=== PATIENT | female | born 1985 | race Caucasian/White ===

== ENCOUNTER 2018-07-01 05:24 | Inpatient (IN) | payer MEDICAID | END 2018-07-14 02:14 | disposition short-term general hospital (02) | LOC: ER 05:24 → TELE-CENTR 07-02 20:01 → TELE 12:05 → TELE-CENTR 12:55 | PROC: 0B9K3ZX Drainage of Right Lung, Percutaneous Approach, Diagnostic (ICD-10-PCS; principal; 2018-07-12 13:04) | DX: T85.628A Displacement of other specified internal prosthetic devices, implants and grafts, initial encounter (principal); E11.65 Type 2 diabetes mellitus with hyperglycemia; J93.83 Other pneumothorax; E87.6 Hypokalemia; F41.9 Anxiety disorder, unspecified; F32.9 Major depressive disorder, single episode, unspecified; J30.2 Other seasonal allergic rhinitis; F12.90 Cannabis use, unspecified, uncomplicated ==

== ENCOUNTER 2021-01-02 09:08 | Emergency (ER) | payer MEDICAID ==
[~2021-01-02] VITALS: Ht 160 cm; Wt 59.0 kg
[~2021-01-02 09:08] MED LIST: SERT25TA84 PO
[2021-01-02 10:16] LABS: Basophils # (auto) 0.1 10 ^3/uL (0-0.2); Eosinophils # (auto) 0.1 10 ^3/uL (0-0.8); Eosinophils % (auto) 1.9 % (0.0-7.0); Hematocrit 42.6 % (36.0-46.0); Hemoglobin 14.5 g/dL (12.2-16.2); Lymphocytes # (auto) 1.6 10 ^3/uL (0.4-5.4); Lymphocytes % (auto) 24.9 % (10.0-50.0); Mean Corpuscular Hemoglobin 29.5 pg (28.0-32.0); Mean Corpuscular Volume 86.9 fL (80.0-100.0); Monocytes # (auto) 0.4 10 ^3/uL (0-1.3); Monocytes % (auto) 5.9 % (0.0-12.0); Neutrophils # (auto) 4.1 10 ^3/uL (1.6-8.6); Neutrophils % (auto) 66.3 % (37.0-80.0); Red Cell Distribution Width 13.1 % (11.8-14.3); White Blood Cell 6.2 10^3/uL (4.4-10.8)
[2021-01-02 10:21] LABS: Albumin 4.2 g/dL (3.4-5.0); Calcium 9.1 mg/dL (8.5-10.1); Potassium 3.4 mmol/L (3.5-5.1)
[2021-01-02 10:25] LABS: Bilirubin, Total 0.9 mg/dL (0.2-1.0); Total Protein 7.6 g/dL (6.4-8.2)
[2021-01-02 10:46] LABS: Urine WBC None Seen /hpf (0 - 5)
[2021-01-02 11:05] LABS: Urine Bacteria NONE SEEN /hpf (None Seen); Urine Blood Negative /uL (Negative)
[2021-01-02 12:52] VITALS: BP 120/82
== END 2021-01-02 12:53 | disposition home or self-care (01) ==
LOC: ER 09:08
DX: R07.89 Other chest pain (principal); F41.9 Anxiety disorder, unspecified; Z79.899 Other long term (current) drug therapy
CPT/HCPCS: 36415; 71046; 80053; 81001; 84484; 85025; 93005

== ENCOUNTER 2023-12-31 22:12 | Emergency (ER) | payer MEDICAID ==
[~2023-12-31] VITALS: Ht 160 cm; Wt 72.2 kg
[2023-12-31] MEDS: LIDOCAINE 1% HCL (LOCAL ANESTH.) INJ 20ML MDV ID ONE (22:34)
[2023-12-31] MEDS: TETANUS-DIPTH-ACEL PERTUSSIS 0.5ML SYR Tdap IM ONE (23:08)
[2023-12-31 23:20] VITALS: BP 121/81; PULSE 89; RESP 18; TEMP 99.2; O2SAT 97
== END 2023-12-31 23:21 | disposition home or self-care (01) ==
LOC: ER 22:12
DX: S01.111A Laceration without foreign body of right eyelid and periocular area, initial encounter (principal); F41.9 Anxiety disorder, unspecified; F32.A Depression, unspecified; F15.90 Other stimulant use, unspecified, uncomplicated; Z79.899 Other long term (current) drug therapy; W22.8XXA Striking against or struck by other objects, initial encounter; Y93.89 Activity, other specified; Y92.89 Other specified places as the place of occurrence of the external cause; Y99.8 Other external cause status
CPT/HCPCS: 12013; 90471; 90715

== ENCOUNTER 2024-03-03 10:55 | Emergency (ER) | payer MEDICAID ==
[~2024-03-03] VITALS: Ht 160 cm; Wt 68.0 kg
[2024-03-03 11:05] VITALS: BP 139/96; PULSE 105; RESP 18; O2SAT 97
== END 2024-03-03 13:31 | disposition left against medical advice (07) ==
LOC: ER 10:55
DX: R21 Rash and other nonspecific skin eruption (principal); Z53.21 Procedure and treatment not carried out due to patient leaving prior to being seen by health care provider